=== PATIENT | female | born 2005 | race Caucasian/White ===

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

== ENCOUNTER → 2024-04-18 | Outpatient (CLI) | payer BC ==
[2024-04-18 19:07] LABS: HEMOGLOBIN A1c 4.6 % (4.0-6.0)
[2024-04-18 19:09] LABS: FREE T4 1.3 NG/DL (0.83-1.43)
[2024-04-18 19:10] LABS: PROLACTIN 12.14 NG/ML; THYROID STIMULATING HORMONE 1.783 uIU/ML (0.48-4.17)
== END ==
LOC: M PLALAB 15:14
PROVIDERS: ATTEND Nurse Practitioner Family
DX: N92.6 Irregular menstruation, unspecified (principal); L68.0 Hirsutism

== ENCOUNTER → 2024-04-18 | Outpatient (CLI) | payer BC | LOC: M WHC 14:34 | PROVIDERS: ATTEND Nurse Practitioner Family | DX: N92.6 Irregular menstruation, unspecified (principal) ==

== ENCOUNTER 2024-08-16 06:12 | Observation (INO) | payer BC ==
[2024-08-16] VITALS (9 sets, daily range): BP systolic 89–110; BP diastolic 52–66; TEMP 96.8–97.9; O2SAT 94–97
[~2024-08-16] VITALS: Ht 162.6 cm; Wt 77.6 kg
[~2024-08-16 06:12] MED LIST: HYDROMORPHONE HCL 0.5 MG/ 0.5 ML SYRINGE IV PRN; LR 1,000 ML IV SCH; MEPERIDINE 25 MG/ML 1ML VIAL IV PRN; METF500T13 PO; ONDANSETRON 4MG 2ML VIAL IV PRN; PHEN30CA21 PO; SPIR100T3 PO; TACROLIMUS TOP; fentaNYL 100 MCG/2 ML INJECTION IV PRN; oxyCODONE 5MG TAB PO PRN
[2024-08-16] MEDS ORDERED: LR 1,000 ML IV SCH (06:55)
[2024-08-16] MEDS ORDERED: ONDANSETRON 4MG 2ML VIAL As Ordered ONE (07:23)
[2024-08-16] MEDS ORDERED: ETON68IM SC (07:23)
[2024-08-16] MEDS ORDERED: LIDOCAINE 2% W/EPINEPHRINE 20ML VIAL **PRES FREE As Ordered ONE (07:23)
[2024-08-16] MEDS ORDERED: ROCURONIUM BROMIDE 50MG/5ML VIAL As Ordered ONE (07:23)
[2024-08-16] MEDS ORDERED: propofoL 200 MG/20 ML VIAL As Ordered ONE (07:23)
[2024-08-16] MEDS ORDERED: TACR0.1O4 EXT (07:23)
[2024-08-16] MEDS ORDERED: MIDAZOLAM INJ 2MG/2ML VIAL As Ordered ONE (07:24)
[2024-08-16] MEDS ORDERED: fentaNYL 100 MCG/2 ML INJECTION As Ordered ONE (07:24)
[2024-08-16] MEDS ORDERED: HOME MED LIST COMPLETE! XX SCH (07:25)
[2024-08-16] MEDS ORDERED: dexmedeTOMIDine (4MCG/ML)200MCG/50ML BTL (PRECEDEX) As Ordered ONE (07:37)
[2024-08-16] MEDS: SCOPOLAMINE 1MG TRANSDERMAL PATCH TOP ONE (07:53)
[2024-08-16] MEDS: CIPROFLOXACIN 400 MG in IV 1 EA IV ONE ×2 (08:05→14:19)
[2024-08-16] MEDS: HEPARIN SOD (PORCINE) 5000UNITS/ML 1ML VIAL/SYRINGE SQ ONE (08:07)
[2024-08-16] MEDS: GENTAMICIN SULF 80MG/2ML VIAL As Ordered ONE (08:37)
[2024-08-16] MEDS ORDERED: PHENYLephrine 500MCG 5ML (100MCG/ML) SYRINGE As Ordered ONE (09:34)
[2024-08-16] MEDS ORDERED: fentaNYL 100 MCG/2 ML INJECTION IV PRN (12:00)
[2024-08-16] MEDS ORDERED: ONDANSETRON 4MG 2ML VIAL IV PRN (12:00)
[2024-08-16] MEDS ORDERED: PERCOCET 5MG/325MG TAB PO PRN (12:15)
[2024-08-16] MEDS: oxyCODONE 5MG TAB PO PRN (12:40)
[2024-08-16] MEDS: MORPHINE 2 MG/ML 1ML VIAL IV PRN (12:41)
[2024-08-16] MEDS: LR 1,000 ML IV SCH (15:31)
[2024-08-16] MEDS: traMADol 50 MG TAB PO PRN (16:30)
[2024-08-16] MEDS: ONDANSETRON 4MG 2ML VIAL IV PRN (18:13)
[2024-08-16] MEDS: ACETAMINOPHEN 325 MG TAB PO PRN (20:21)
[2024-08-17 04:53] VITALS: BP 109/57; TEMP 97.7; O2SAT 95
[2024-08-17 08:00] VITALS: BP 117/82; TEMP 97.2; O2SAT 96
[2024-08-17] MEDS ORDERED: TRAM50TA2 PO (11:13)
[2024-08-17 12:00] VITALS: BP 118/82; TEMP 98.8; O2SAT 96
== END 2024-08-17 12:40 | disposition home or self-care (01) ==
LOC: M SDC 06:12 → M RR INP 12:14 → M MS5PR 13:45
PROVIDERS: ADMIT Plastic Surgery Surgery of the Hand; ATTEND Plastic Surgery Surgery of the Hand
DX: N62 Hypertrophy of breast (principal); M54.6 Pain in thoracic spine; M95.4 Acquired deformity of chest and rib; L40.9 Psoriasis, unspecified; E28.2 Polycystic ovarian syndrome; K21.9 Gastro-esophageal reflux disease without esophagitis; L73.2 Hidradenitis suppurativa; Z79.84 Long term (current) use of oral hypoglycemic drugs
CPT/HCPCS: 19318; 81025; 88305; 96365; 96375; C9290; J0665; J0744; J1580; J2250; J2371; J2405; J3010

== ENCOUNTER → 2024-09-19 | Outpatient (CLI) | payer BC, SELFPAY ==
[~2024-09-19] MED LIST changes: +ETON68IM SC; -HYDROMORPHONE HCL 0.5 MG/ 0.5 ML SYRINGE IV PRN; -LR 1,000 ML IV SCH; -MEPERIDINE 25 MG/ML 1ML VIAL IV PRN; -ONDANSETRON 4MG 2ML VIAL IV PRN; +TACR0.1O4 EXT; +TRAM50TA2 PO; -fentaNYL 100 MCG/2 ML INJECTION IV PRN; -oxyCODONE 5MG TAB PO PRN
[2024-09-19 18:24] LABS: ALBUMIN 3.8 G/DL (3.2-5.2); ALKALINE PHOSPHATASE 48 U/L (35-104); ALT/SGPT 13 U/L (7.0-40); AST/SGOT 17 U/L (<34); BILIRUBIN,TOTAL 0.5 MG/DL (0.3-1.2); BLOOD UREA NITROGEN 10 MG/DL (9-23); CALCIUM LEVEL 9.1 MG/DL (8.5-10.1); CARBON DIOXIDE LEVEL 28 MMOL/L (20-31); CHLORIDE LEVEL 107 MMOL/L (98-107); CREATININE FOR GFR 0.65 MG/DL (0.55-1.30); GLUCOSE, FASTING 74 MG/DL (60-100); POTASSIUM SERUM 4.2 MMOL/L (3.5-5.1); SODIUM LEVEL 139 MMOL/L (136-145); TOTAL PROTEIN 7.2 G/DL (5.7-8.2)
== END ==
LOC: M PLALAB 14:12
PROVIDERS: ATTEND Nurse Practitioner Family
DX: E28.2 Polycystic ovarian syndrome (principal)

== ENCOUNTER 2025-06-01 10:13 | Day surgery (SDC) | payer BC ==
[~2025-06-01] VITALS: Ht 162.6 cm; Wt 77.6 kg
[~2025-06-01 10:13] MED LIST changes: +DEXT10CA5 PO
[2025-06-01] MEDS ORDERED: ONDANSETRON 4MG 2ML VIAL As Ordered ONE (11:12)
[2025-06-01] MEDS ORDERED: GLYCOPYRROLATE INJ 0.2 MG/ML 2 ML VIAL As Ordered ONE (11:12)
[2025-06-01] MEDS ORDERED: LIDOCAINE 2% 100 MG/5 ML SDV (FOR ANES.) As Ordered ONE (11:12)
[2025-06-01] MEDS ORDERED: PHENYLephrine 500MCG 5ML (100MCG/ML) SYRINGE As Ordered ONE (11:33)
[2025-06-01 11:52] VITALS: TEMP 96.6
[2025-06-01 12:10] VITALS: BP 120/71; O2SAT 96
== END 2025-06-01 12:17 | disposition home or self-care (01) ==
LOC: M OPP 10:13
PROVIDERS: ATTEND Internal Medicine Gastroenterology
DX: K92.1 Melena (principal); R12 Heartburn; Z88.0 Allergy status to penicillin; Z88.1 Allergy status to other antibiotic agents; Z79.84 Long term (current) use of oral hypoglycemic drugs; Z79.899 Other long term (current) drug therapy
CPT/HCPCS: 43239; 45378; 88305; J1596; J2371; J2405

== ENCOUNTER → 2025-08-21 | Outpatient (REF) | payer BC ==
[2025-08-21 17:43] LABS: HIV 1&2 SCREEN NEGATIVE (NEGATIVE)
[2025-08-21 17:49] LABS: HEPATITIS C VIRUS ABY INDEX 0.09 INDEX (<0.8)
== END ==
LOC: M SFHCADAM 14:24
PROVIDERS: ATTEND Physician Assistant
DX: L40.0 Psoriasis vulgaris (principal)

== ENCOUNTER → 2025-08-22 | Outpatient (REF) | payer BC | LOC: M LABDRWAD 13:19 | PROVIDERS: ATTEND Physician Assistant | DX: L40.0 Psoriasis vulgaris (principal) ==